=== PATIENT | male | born 1965 | race African-American/Black ===

== ENCOUNTER 2017-09-10 15:36 | Inpatient (IN) | payer BC ==
[~2017-09-10] VITALS: Ht 182.9 cm; Wt 81.6 kg
[2017-09-10 19:31] LABS: CHLORIDE 96 mEq/L (98-107)
[2017-09-10 19:32] LABS: HEMATOCRIT. 38.8 % (42.0-52.0); HEMOGLOBIN. 13.1 g/dL (14.0-18.0); MEAN CORPUSCULAR HEMOGLOBIN 22.8 pg (28.0-32.0); MEAN CORPUSCULAR VOLUME 67.6 fL (80.0-94.0); MEAN PLATELET VOLUME 10.1 fl (7.4-10.4); PLATELET 77 x1000/uL (130-400); RED BLOOD CELL COUNT 5.74 mill/uL (4.7-6.1); RED CELL DISTRIBUTION WIDTH 16.7 % (11.6-14.6)
[2017-09-10 19:34] LABS: ETHANOL BLOOD < 10 mg/dL; INR 3.4; PROTHROMBIN TIME 34.8 sec (9.4-11.6)
[2017-09-10] MEDS ORDERED: OCTREOTIDE ACETATE 50 MCG/ML 1ML IV STA (20:00)
[2017-09-10] MEDS ORDERED: PANTOPRAZOLE SODIUM 40 MG/VIAL IV STA (20:00)
[2017-09-10 20:59] LABS: PLATELET ESTIMATE MARKEDLY DECREASED
[2017-09-10] MEDS ORDERED: SODIUM CHLORIDE 0.9% 1,000 ML IV ONE (21:00)
[2017-09-10 21:13] LABS: CLARITY URINE CLOUDY (CLEAR); COLOR URINE DARK YELLOW (YELLOW); KETONES URINE NEGATIVE (NEGATIVE); LEUKOCYTE ESTERASE URINE 1+ (NEGATIVE); NITRITE URINE POSITIVE (NEGATIVE); OCCULT BLOOD URINE NEGATIVE (NEGATIVE); PROTEIN URINE TRACE (NEGATIVE); SPECIFIC GRAVITY URINE 1.029 (1.005-1.030)
[2017-09-10 21:21] LABS: *BARBITURATES SCREEN URINE NEGATIVE (NEGATIVE)
[2017-09-10 21:22] LABS: *AMPHETAMINES SCREEN URINE NEGATIVE (NEGATIVE); *BENZODIAZEPINES SCREEN URINE NEGATIVE (NEGATIVE); *COCAINE SCREEN URINE NEGATIVE (NEGATIVE); METHADONE URINE SCREEN NEGATIVE (NEGATIVE); OPIATES URINE SCREEN NEGATIVE (NEGATIVE)
[2017-09-10 21:23] LABS: PHENCYCLIDINE URINE SCREEN NEGATIVE (NEGATIVE)
[2017-09-10 21:25] LABS: CANNABINOID URINE SCREEN PRESUMTIVE POSITIVE (NEGATIVE)
[2017-09-10] MEDS ORDERED: PIPERACILLIN/TAZ 3.375G PREMIX 50 ML IV ONE (22:00)
[2017-09-10] MEDS: SODIUM CHLORIDE 0.9% 1,000 ML IV SCH (22:58)
[2017-09-10] MEDS ORDERED: DOCUSATE SODIUM 100MG CAPSULE PO PRN (23:00)
[2017-09-10] MEDS ORDERED: CLONIDINE 0.1MG TABLET PO PRN (23:00)
[2017-09-10] MEDS ORDERED: HYDROCODONE/ACETAMINOPHEN 5/325MG TABLET PO PRN (23:00)
[2017-09-10] MEDS ORDERED: MAGNESIUM/ALUMINUM HYDROXIDE/SIMETHICONE 30ML UDC PO PRN (23:00)
[2017-09-10] MEDS ORDERED: IPRATROPIUM/ALBUTEROL 0.5-3(2.5)MG/3ML NEB INH PRN (23:00)
[2017-09-10] MEDS ORDERED: ONDANSETRON HCL 4MG/2ML VIAL IV PRN (23:00)
[2017-09-10] MEDS ORDERED: [UNRECOGNIZED DRUG - CODE] PO (23:56)
[2017-09-10] MEDS ORDERED: EMTR1TAB11 PO (23:56)
[2017-09-11] VITALS (7 sets, daily range): BP systolic 113–122; BP diastolic 63–76
[2017-09-11 06:13] LABS: BASOPHILS % 0.4 % (0.0-2.0); EOSINOPHILS % 1.1 % (0.0-5.0); HEMATOCRIT. 31.6 % (42.0-52.0); HEMOGLOBIN. 10.8 g/dL (14.0-18.0); MEAN CORPUSCULAR HEMOGLOBIN 22.8 pg (28.0-32.0); MEAN CORPUSCULAR VOLUME 66.9 fL (80.0-94.0); MEAN PLATELET VOLUME 9.6 fl (7.4-10.4); MONOCYTES % 12.5 % (2.0-8.0); PLATELET 55 x1000/uL (130-400); RED BLOOD CELL COUNT 4.73 mill/uL (4.7-6.1); RED CELL DISTRIBUTION WIDTH 16.6 % (11.6-14.6)
[2017-09-11 07:20] LABS: CHLORIDE 100 mEq/L (98-107)
[2017-09-11 07:30] LABS: CREATINE KINASE 76 IU/L (39-308)
[2017-09-11 07:32] LABS: HDL CHOLESTEROL 9 mg/dL (40-59); LDL CHOLESTEROL 38 mg/dL (5-100)
[2017-09-11 07:38] LABS: CREATINE KINASE MB FRACTION 0.8 ng/mL (0.5-3.6)
[2017-09-11] MEDS ORDERED: HYDROCODONE/ACETAMINOPHEN 5/325MG TABLET PO PRN (09:00)
[2017-09-11] MEDS ORDERED: LORAZEPAM 0.5MG TABLET PO PRN (09:00)
[2017-09-11] MEDS ORDERED: ONDANSETRON HCL 4MG/2ML VIAL IV PRN (09:00)
[2017-09-11] MEDS ORDERED: ACETAMINOPHEN 650MG SUPP PR PRN (09:00)
[2017-09-11] MEDS ORDERED: DIPHENHYDRAMINE 50MG/ML VIAL IV PRN (09:00)
[2017-09-11] MEDS ORDERED: ACETAMINOPHEN 325MG TABLET PO PRN (09:00)
[2017-09-11] MEDS ORDERED: ACETAMINOPHEN 650MG/20.3ML UDC GT PRN (09:00)
[2017-09-11] MEDS ORDERED: HYDROCODONE/ACETAMINOPHEN 10/325MG TABLET PO PRN (09:00)
[2017-09-11] MEDS ORDERED: GUAIFENESIN 200MG/10ML SUGAR FREE UDC PO PRN (09:00)
[2017-09-11] MEDS ORDERED: CLONIDINE 0.1MG TABLET PO PRN (09:00)
[2017-09-11] MEDS ORDERED: MORPHINE SULFATE 4 MG/ML CPJ (NOT FOR IM USE) IV PRN (09:30)
[2017-09-11 10:22] LABS: PLATELET ESTIMATE DECREASED
[2017-09-11 10:38] LABS: HEPATITIS A AB IGM NEGATIVE (NEGATIVE)
[2017-09-11 11:17] LABS: HEPATITIS B CORE AB IGM REACTIVE; HEPATITIS B SURFACE ANTIGEN REACTIVE PEND CONFIR
[2017-09-11] MEDS: SODIUM CHLORIDE 0.9% 1,000 ML IV SCH (12:11)
[2017-09-11 15:05] LABS: CREATINE KINASE 84 IU/L (39-308)
[2017-09-11 15:08] LABS: CREATINE KINASE MB FRACTION 1.1 ng/mL (0.5-3.6)
[2017-09-11] MEDS: DEXT 5%/0.45% NACL 1000ML 1,000 ML IV SCH (16:31)
[2017-09-12] VITALS: BP 118/72
[2017-09-12] MEDS: DEXT 5%/0.45% NACL 1000ML 1,000 ML IV SCH ×2 (03:02→16:02)
[2017-09-12 04:00] VITALS: BP 110/71
[2017-09-12 07:26] LABS: BASOPHILS % 0.3 % (0.0-2.0); EOSINOPHILS % 0.7 % (0.0-5.0); HEMATOCRIT. 33.9 % (42.0-52.0); HEMOGLOBIN. 11.6 g/dL (14.0-18.0); LYMPHOCYTES % 33.2 % (20.0-50.0); MEAN CORPUSCULAR HEMOGLOBIN 22.9 pg (28.0-32.0); MEAN CORPUSCULAR VOLUME 66.8 fL (80.0-94.0); MONOCYTES % 10.1 % (2.0-8.0); NEUTROPHILS % 55.7 % (40.0-76.0); RED BLOOD CELL COUNT 5.07 mill/uL (4.7-6.1); RED CELL DISTRIBUTION WIDTH 16.8 % (11.6-14.6)
[2017-09-12 07:37] LABS: CHLORIDE 98 mEq/L (98-107)
[2017-09-12 07:44] LABS: PHOSPHORUS 2.2 mg/dL (2.5-4.9)
[2017-09-12 09:01] LABS: MEAN PLATELET VOLUME 9.6 fl (7.4-10.4); PLATELET 58 x1000/uL (130-400)
[2017-09-12 17:58] VITALS: BP 116/79
[2017-09-14 08:10] LABS: HBSAG SCREEN Positive (Negative)
[2017-09-14 09:11] LABS: ABSOLUTE MONOCYTES 0.4 x10E3/uL (0.1-0.9); ABSOLUTE NEUTROPHILS 2.4 x10E3/uL (1.4-7.0); BASOPHILS 0 % (Not Estab.); HEMATOCRIT 31.5 % (37.5-51.0); HEMATOLOGY COMMENT Note: (.); HEMOGLOBIN 11.5 g/dL (13.0-17.7); IMMATURE GRANULOCYTES 0 % (Not Estab.); LYMPHOCYTES 27 % (Not Estab.); MEAN CORPUSCULAR HEMOGLOBIN 22.8 pg (26.6-33.0); MEAN CORPUSCULAR HGB CONC. 36.5 g/dL (31.5-35.7); MEAN CORPUSCULAR VOLUME 62 fL (79-97); MONOCYTES 9 % (Not Estab.); NEUTROPHILS 63 % (Not Estab.); PLATELETS 76 x10E3/uL (150-379); RBC 5.05 x10E6/uL (4.14-5.80); RED CELL DISTRIBUTION WIDTH 18.1 % (12.3-15.4); WBC 3.9 x10E3/uL (3.4-10.8)
[2017-09-16 04:17] LABS: % CD 4 POS. LYMPHOCYTES 24.5 % (30.8-58.5); % CD 8 POS. LYMPH 67.5 % (12.0-35.5); ABSOLUTE CD 3 930 /uL (622-2402); ABSOLUTE CD 4 HELPER 245 /uL (359-1519); ABSOLUTE CD 8 SUPPRESSOR 675 /uL (109-897); CD4/CD8 RATIO 0.36 (0.92-3.72)
== END 2017-09-12 18:20 | disposition home or self-care (01) | DRG 439 ==
LOC: ER 15:36 → 6EST 21:53 → ENRESERV 22:08
PROVIDERS: ADMIT Internal Medicine; ATTEND Internal Medicine
DX: K85.90 Acute pancreatitis without necrosis or infection, unspecified (principal); E87.2 Acidosis; B19.10 Unspecified viral hepatitis B without hepatic coma; K74.60 Unspecified cirrhosis of liver; E88.09 Other disorders of plasma-protein metabolism, not elsewhere classified; N28.1 Cyst of kidney, acquired; K92.1 Melena; K81.9 Cholecystitis, unspecified; D50.9 Iron deficiency anemia, unspecified; Z21 Asymptomatic human immunodeficiency virus [HIV] infection status; D72.819 Decreased white blood cell count, unspecified; K76.0 Fatty (change of) liver, not elsewhere classified; N20.0 Calculus of kidney; K86.89 Other specified diseases of pancreas; R16.1 Splenomegaly, not elsewhere classified; Z79.899 Other long term (current) drug therapy
CPT/HCPCS: 36415; 71045; 74176; 74181; 76705; 80048; 80053; 80061; 80076; 80305; 81003; 82550; 82553; 83605; 83690; 83735; 84100; 84443; 84484; 85025; 85610; 86359; 86360; 86705; 86709; 86803; 87040; 87340; 87536; 93970; 96361; 96374; 96375; 99285; A4565; C1893; C9113; G0482; J2354; J2405; J3490; J7030

== ENCOUNTER 2017-09-22 08:21 | Inpatient (IN) | payer BC ==
[~2017-09-22] VITALS: Ht 182.9 cm; Wt 104.3 kg
[~2017-09-22 08:21] MED LIST: EMTR1TAB11 PO; [UNRECOGNIZED DRUG - CODE] PO
[2017-09-22 09:48] LABS: BG BASE EXCESS 3.8 mmol/L (-2.0-2.0); BG CARBOXYHEMOGLOBIN 1.9 % (0.5-1.5); BG DEOXYHEMOGLOBIN 5.1 % (0.0-5.0); BG FRACTION INSPIRED OXYGEN 21; BG HCO3 ACT 27.5 mmol/L (22.0-26.0); BG METHEMOGLOBIN 0.1 % (0.0-1.5); BG OXYGEN SATURATION 94.8 % (92.0-98.5); BG OXYHEMOGLOBIN 92.9 % (94.0-97.0); BG PCO2 38.1 mmHg (35.0-45.0); BG PH 7.476 (7.350-7.450); BG PO2 79.3 mmHg (75.0-100.0); BG SAMPLE SITE RIGHT BRACHIAL; BG VENT MODE ROOM AIR
[2017-09-22 10:24] LABS: CHLORIDE 98 mEq/L (98-107)
[2017-09-22 10:31] LABS: ETHANOL BLOOD < 10 mg/dL
[2017-09-22 10:37] LABS: BASOPHILS % 0.4 % (0.0-2.0); EOSINOPHILS % 0.2 % (0.0-5.0); HEMATOCRIT. 36.6 % (42.0-52.0); HEMOGLOBIN. 12.4 g/dL (14.0-18.0); LYMPHOCYTES % 17.1 % (20.0-50.0); MEAN CORPUSCULAR HEMOGLOBIN 22.8 pg (28.0-32.0); MEAN CORPUSCULAR VOLUME 67.2 fL (80.0-94.0); MONOCYTES % 9.7 % (2.0-8.0); NEUTROPHILS % 72.6 % (40.0-76.0); PARTIAL THROMBOPLASTIN TIME 67.9 sec (23.4-31.0); RED BLOOD CELL COUNT 5.44 mill/uL (4.7-6.1); RED CELL DISTRIBUTION WIDTH 17.5 % (11.6-14.6)
[2017-09-22 10:55] LABS: PROTHROMBIN TIME > 100.0 sec (9.4-11.6)
[2017-09-22 10:56] LABS: INR > 10.0
[2017-09-22] MEDS ORDERED: PHYTONADIONE 10MG/ML AMP SUBCUT ONE (11:00)
[2017-09-22 11:18] LABS: MEAN PLATELET VOLUME 9.4 fl (7.4-10.4); PLATELET 93 x1000/uL (130-400)
[2017-09-22 11:20] LABS: AMMONIA 17 uMol/L (<32)
[2017-09-22] MEDS ORDERED: LACTULOSE 20G/30ML UDC PO ONE (13:30)
[2017-09-22] MEDS ORDERED: CEFTRIAXONE 1 G PREMIX 50 ML IV ONE (13:45)
[2017-09-22] MEDS ORDERED: LACTULOSE 300 ML in WATER FOR INJECTION,STERILE 700 ML PR ONE (14:15)
[2017-09-22 15:20] VITALS: BP 129/65
[2017-09-22] MEDS ORDERED: SODIUM CHLORIDE 0.9% 1,000 ML IV SCH (15:45)
[2017-09-22] MEDS ORDERED: DEXTROSE 50% WATER 50ML SYRINGE IV NR (16:00)
[2017-09-22] MEDS ORDERED: SODIUM POLYSTYRENE SULFONATE 15 G/60 ML BOT PO NR ×2 (16:00→23:00)
[2017-09-22 16:35] VITALS: BP 129/65
[2017-09-22] MEDS ORDERED: CALCIUM CHLORIDE 1,000 MG in DEXT 5% WATER 90 ML IV NR (17:30)
[2017-09-22] MEDS ORDERED: DEXT 5%/0.9% NACL 1,000 ML IV SCH (17:30)
[2017-09-22] MEDS ORDERED: INSULIN REGULAR (HUMULIN R) UD 100 UNITS/ML SYR IV NR (17:30)
[2017-09-22] MEDS: DEXT 5%/0.9% NACL 1,000 ML IV SCH (18:24)
[2017-09-22 20:00] VITALS: BP 158/93
[2017-09-22] MEDS ORDERED: PROP80CA2 PO (20:59)
[2017-09-22] MEDS ORDERED: PANT40TA4 PO (21:00)
[2017-09-22] MEDS: LORAZEPAM 2MG/ML CPJ IV PRN (23:28)
[2017-09-23] VITALS: BP 113/92
[2017-09-23] MEDS: DEXT 5%/0.9% NACL 1,000 ML IV SCH ×3 (03:48→21:45)
[2017-09-23 04:00] VITALS: BP 115/77
[2017-09-23 06:29] LABS: CHLORIDE 102 mEq/L (98-107)
[2017-09-23 06:43] LABS: AMMONIA 76 uMol/L (<32)
[2017-09-23 06:51] LABS: AMYLASE 161 IU/L (25-115)
[2017-09-23 06:52] LABS: PHOSPHORUS 3.1 mg/dL (2.5-4.9)
[2017-09-23 07:21] LABS: INR > 10.0; PROTHROMBIN TIME > 100.0 sec (9.4-11.6)
[2017-09-23] MEDS ORDERED: PHYTONADIONE 10MG/ML AMP SUBCUT NR (07:30)
[2017-09-23 08:00] VITALS: BP 119/75
[2017-09-23] MEDS ORDERED: SODIUM POLYSTYRENE SULFONATE 15 G/60 ML BOT PO NR (08:30)
[2017-09-23 12:00] VITALS: BP 131/85
[2017-09-23 12:46] LABS: BASOPHILS % 0.2 % (0.0-2.0); HEMATOCRIT. 32.6 % (42.0-52.0); HEMOGLOBIN. 11.1 g/dL (14.0-18.0); MEAN CORPUSCULAR HEMOGLOBIN 22.8 pg (28.0-32.0); MEAN CORPUSCULAR VOLUME 66.5 fL (80.0-94.0); MONOCYTES % 12.6 % (2.0-8.0); NEUTROPHILS % 70.2 % (40.0-76.0); RED CELL DISTRIBUTION WIDTH 17.9 % (11.6-14.6)
[2017-09-23 13:24] LABS: PLATELET 111 x1000/uL (130-400)
[2017-09-23 13:25] LABS: MEAN PLATELET VOLUME 9.6 fl (7.4-10.4)
[2017-09-23] MEDS: LACTULOSE 20G/30ML UDC PO SCH ×2 (14:10→21:45)
[2017-09-23] MEDS ORDERED: CEFTRIAXONE 1 G PREMIX 50 ML IV SCH ×2 (15:00→17:00)
[2017-09-23 15:03] LABS: KETONES URINE NEGATIVE (NEGATIVE); LEUKOCYTE ESTERASE URINE NEGATIVE (NEGATIVE); NITRITE URINE NEGATIVE (NEGATIVE); OCCULT BLOOD URINE 3+ (NEGATIVE); PROTEIN URINE NEGATIVE (NEGATIVE); SPECIFIC GRAVITY URINE 1.026 (1.005-1.030)
[2017-09-23 15:06] LABS: CLARITY URINE CLOUDY (CLEAR); COLOR URINE BLOODY (YELLOW)
[2017-09-23 15:22] LABS: *AMPHETAMINES SCREEN URINE NEGATIVE (NEGATIVE); *BARBITURATES SCREEN URINE NEGATIVE (NEGATIVE); *BENZODIAZEPINES SCREEN URINE NEGATIVE (NEGATIVE); *COCAINE SCREEN URINE NEGATIVE (NEGATIVE)
[2017-09-23 15:23] LABS: CANNABINOID URINE SCREEN NEGATIVE (NEGATIVE); METHADONE URINE SCREEN NEGATIVE (NEGATIVE); OPIATES URINE SCREEN NEGATIVE (NEGATIVE); PHENCYCLIDINE URINE SCREEN NEGATIVE (NEGATIVE)
[2017-09-23 16:00] VITALS: BP 119/77
[2017-09-23] MEDS: LORAZEPAM 2MG/ML CPJ IV PRN (18:49)
[2017-09-23 20:00] VITALS: BP 161/92
[2017-09-24] VITALS (63 sets, daily range): BP systolic 64–147; BP diastolic 37–130
[2017-09-24] MEDS: LACTULOSE 20G/30ML UDC PO SCH ×4 (05:45→23:50)
[2017-09-24] MEDS: DEXT 5%/0.9% NACL 1,000 ML IV SCH ×3 (05:45→23:50)
[2017-09-24 07:53] LABS: PROTHROMBIN TIME > 100.0 sec (9.4-11.6)
[2017-09-24 07:57] LABS: INR > 10.0
[2017-09-24 07:59] LABS: HEMATOCRIT. 31.1 % (42.0-52.0); HEMOGLOBIN. 10.4 g/dL (14.0-18.0); MEAN CORPUSCULAR HEMOGLOBIN 22.7 pg (28.0-32.0); MEAN CORPUSCULAR VOLUME 67.6 fL (80.0-94.0); RED CELL DISTRIBUTION WIDTH 19.6 % (11.6-14.6)
[2017-09-24 09:42] LABS: AMMONIA 194 uMol/L (<32)
[2017-09-24] MEDS ORDERED: PHYTONADIONE 10MG/ML AMP SUBCUT NR (10:30)
[2017-09-24 10:50] LABS: BG BASE EXCESS 1.6 mmol/L (-2.0-2.0); BG CARBOXYHEMOGLOBIN 2.2 % (0.5-1.5); BG DEOXYHEMOGLOBIN 13.3 % (0.0-5.0); BG FRACTION INSPIRED OXYGEN 21; BG HCO3 ACT 23.7 mmol/L (22.0-26.0); BG METHEMOGLOBIN 0.1 % (0.0-1.5); BG OXYGEN SATURATION 86.4 % (92.0-98.5); BG OXYHEMOGLOBIN 84.4 % (94.0-97.0); BG PCO2 29.2 mmHg (35.0-45.0); BG PH 7.528 (7.350-7.450); BG PO2 53.6 mmHg (75.0-100.0); BG SAMPLE SITE OTHER; BG TOTAL HEMOGLOBIN 10.5 g/dL (12.0-18.0); BG VENT MODE ROOM AIR
[2017-09-24] MEDS ORDERED: LORAZEPAM 2MG/ML CPJ IV PRN (11:00)
[2017-09-24] MEDS ORDERED: NA PHOS,M-B/NA PHOS,DI-BA ENEMA 118ML PR PRN (11:15)
[2017-09-24] MEDS: RIFAXIMIN 550 MG TABLET PO SCH ×2 (11:31→20:45)
[2017-09-24] MEDS ORDERED: SORBITOL 70% SOLN 30ML PO NR (11:45)
[2017-09-24 12:56] LABS: PLATELET 121 x1000/uL (130-400)
[2017-09-24 12:59] LABS: NUCLEATED RED BLOOD CELLS 1 /100 WBC; PLATELET ESTIMATE DECREASED
[2017-09-24] MEDS ORDERED: PIPERACILLIN/TAZ 2.25G PREMIX 50 ML IV SCH (13:00)
[2017-09-24] MEDS ORDERED: IPRATROPIUM/ALBUTEROL 0.5-3(2.5)MG/3ML NEB HHN PRN (13:00)
[2017-09-24] MEDS ORDERED: SUCCINYLCHOLINE CHLORIDE 200MG/10ML VIAL IV ONE (13:12)
[2017-09-24] MEDS ORDERED: NORMAL SALINE 0.9% 10 ML SYR ONE (13:12)
[2017-09-24] MEDS ORDERED: ETOMIDATE 2MG/ML 10ML VIAL IV ONE (13:12)
[2017-09-24] MEDS: PANTOPRAZOLE SODIUM 40 MG/VIAL IV SCH (14:50)
[2017-09-24 14:56] LABS: BG BASE EXCESS 0.5 mmol/L (-2.0-2.0); BG CARBOXYHEMOGLOBIN 1.5 % (0.5-1.5); BG DEOXYHEMOGLOBIN 11.2 % (0.0-5.0); BG FRACTION INSPIRED OXYGEN 100; BG HCO3 ACT 24.1 mmol/L (22.0-26.0); BG METHEMOGLOBIN 0.3 % (0.0-1.5); BG OXYGEN SATURATION 88.6 % (92.0-98.5); BG PCO2 34.8 mmHg (35.0-45.0); BG PH 7.459 (7.350-7.450); BG PO2 62.3 mmHg (75.0-100.0); BG SAMPLE SITE LEFT BRACHIAL; BG TIDAL VOLUME(mL) 500 mL; BG VENT MODE VENT - A/C; BG VENT RATE 14 set
[2017-09-24] MEDS ORDERED: PIPERACILLIN/TAZ 3.375G PREMIX 50 ML IV SCH (15:00)
[2017-09-24] MEDS: PROPOFOL 10MG/ML 100ML 100 ML IV PRN (15:26)
[2017-09-24] MEDS ORDERED: PHENYLEPHRINE 10 MG in DEXT 5% WATER 249 ML IV PRN (15:30)
[2017-09-24] MEDS ORDERED: NOREPINEPHRINE 4 MG in DEXT 5% WATER 246 ML IV PRN (15:30)
[2017-09-24] MEDS: IPRATROPIUM/ALBUTEROL 0.5-3(2.5)MG/3ML NEB HHN SCH ×2 (15:48→21:21)
[2017-09-24] MEDS ORDERED: SULFAMETHOXAZOLE/TRIMETHOPRIM 800/160MG TABLET PO SCH (16:00)
[2017-09-24] MEDS: AZITHROMYCIN 500 MG TABLET PO SCH (16:12)
[2017-09-24] MEDS: METRONIDAZOLE 500 MG PREMIX 100 ML IV SCH ×2 (16:28→23:50)
[2017-09-24] MEDS: CEFEPIME 1,000 MG in DEXTROSE 5% WATER 50 ML IV SCH (16:28)
[2017-09-24] MEDS: NOREPINEPHRINE 16 MG in DEXT 5% WATER 234 ML IV PRN (17:15)
[2017-09-24] MEDS: PHENYLEPHRINE 40 MG in DEXT 5% WATER 246 ML IV PRN (17:16)
[2017-09-24 17:59] LABS: AMMONIA 241 uMol/L (<32)
[2017-09-25] VITALS (84 sets, daily range): BP systolic 90–125; BP diastolic 47–97
[2017-09-25] MEDS: PHENYLEPHRINE 40 MG in DEXT 5% WATER 246 ML IV PRN ×4 (00:17→20:08)
[2017-09-25] MEDS: IPRATROPIUM/ALBUTEROL 0.5-3(2.5)MG/3ML NEB HHN SCH ×6 (00:51→20:50)
[2017-09-25] MEDS: NOREPINEPHRINE 16 MG in DEXT 5% WATER 234 ML IV PRN ×2 (02:09→09:59)
[2017-09-25] MEDS: PROPOFOL 10MG/ML 100ML 100 ML IV PRN ×3 (03:36→17:47)
[2017-09-25] MEDS: LACTULOSE 20G/30ML UDC PO SCH (05:19)
[2017-09-25 06:06] LABS: PARTIAL THROMBOPLASTIN TIME 62.6 sec (23.4-31.0)
[2017-09-25 06:25] LABS: HEMATOCRIT. 29.8 % (42.0-52.0); HEMOGLOBIN. 9.9 g/dL (14.0-18.0); MEAN CORPUSCULAR VOLUME 69.5 fL (80.0-94.0); RED BLOOD CELL COUNT 4.29 mill/uL (4.7-6.1); RED CELL DISTRIBUTION WIDTH 18.2 % (11.6-14.6)
[2017-09-25 06:46] LABS: AMMONIA 262 uMol/L (<32)
[2017-09-25 06:47] LABS: FIBRINOGEN 50 mg/dL (200-400); PROTHROMBIN TIME > 100.0 sec (9.4-11.6)
[2017-09-25 06:48] LABS: INR > 10.0
[2017-09-25] MEDS ORDERED: SODIUM POLYSTYRENE SULFONATE 15 G/60 ML BOT PO SCH (07:30)
[2017-09-25] MEDS ORDERED: PHYTONADIONE 10MG/ML AMP SUBCUT SCH (07:30)
[2017-09-25] MEDS: PANTOPRAZOLE SODIUM 40 MG/VIAL IV SCH (08:18)
[2017-09-25] MEDS: AZITHROMYCIN 500 MG TABLET PO SCH (08:18)
[2017-09-25] MEDS: DEXT 5%/0.9% NACL 1,000 ML IV SCH ×2 (08:21→17:45)
[2017-09-25] MEDS: METRONIDAZOLE 500 MG PREMIX 100 ML IV SCH ×2 (08:21→17:46)
[2017-09-25] MEDS ORDERED: LACTULOSE 300 ML in WATER FOR INJECTION,STERILE 700 ML PR ONE (10:00)
[2017-09-25 10:10] LABS: BG CARBOXYHEMOGLOBIN 1.3 % (0.5-1.5); BG DEOXYHEMOGLOBIN 60.4 % (0.0-5.0); BG METHEMOGLOBIN 0.4 % (0.0-1.5); BG OXYGEN SATURATION 38.6 % (92.0-98.5); BG OXYHEMOGLOBIN 37.9 % (94.0-97.0); BG PCO2 25.9 mmHg (35.0-45.0); BG PH 7.319 (7.350-7.450); BG PO2 < 30.3 mmHg (75.0-100.0); BG SAMPLE SITE RIGHT RADIAL; BG TIDAL VOLUME(mL) 500 mL; BG TOTAL HEMOGLOBIN 6.1 g/dL (12.0-18.0); BG VENT MODE VENT - A/C; BG VENT RATE 14 set
[2017-09-25] MEDS: RIFAXIMIN 550 MG TABLET PO SCH ×2 (10:30→20:40)
[2017-09-25] MEDS ORDERED: LACTULOSE 300 ML in WATER FOR INJECTION,STERILE 700 ML PR SCH (10:30)
[2017-09-25 13:07] LABS: PLATELET 76 x1000/uL (130-400)
[2017-09-25 13:12] LABS: NUCLEATED RED BLOOD CELLS 7 /100 WBC
[2017-09-25 13:14] LABS: PLATELET ESTIMATE MARKEDLY DECREASED
[2017-09-25] MEDS: CEFEPIME 1,000 MG in DEXTROSE 5% WATER 50 ML IV SCH (17:46)
[2017-09-25 20:54] LABS: AMMONIA 44 uMol/L (<32)
[2017-09-25 21:34] LABS: VITAMIN B12 SERUM > 2000.0 pg/mL (211-911)
[2017-09-25] MEDS ORDERED: PHENYLEPHRINE 80 MG in DEXT 5% WATER 492 ML IV PRN (21:45)
[2017-09-26] VITALS (94 sets, daily range): BP systolic 71–111; BP diastolic 38–66
[2017-09-26] MEDS: METRONIDAZOLE 500 MG PREMIX 100 ML IV SCH ×3 (00:05→17:10)
[2017-09-26] MEDS: PHENYLEPHRINE 80 MG in DEXT 5% WATER 492 ML IV PRN ×3 (00:08→17:36)
[2017-09-26] MEDS: IPRATROPIUM/ALBUTEROL 0.5-3(2.5)MG/3ML NEB HHN SCH ×7 (00:34→23:59)
[2017-09-26] MEDS: NOREPINEPHRINE 16 MG in DEXT 5% WATER 234 ML IV PRN ×2 (01:17→17:12)
[2017-09-26] MEDS: PROPOFOL 10MG/ML 100ML 100 ML IV PRN ×4 (03:21→22:34)
[2017-09-26] MEDS: DEXT 5%/0.9% NACL 1,000 ML IV SCH ×3 (04:17→15:01)
[2017-09-26] MEDS ORDERED: PHYTONADIONE 10MG/ML AMP SUBCUT SCH (05:00)
[2017-09-26 05:52] LABS: BASOPHILS % 0.2 % (0.0-2.0); HEMATOCRIT. 26.5 % (42.0-52.0); HEMOGLOBIN. 9.3 g/dL (14.0-18.0); LYMPHOCYTES % 12.1 % (20.0-50.0); MEAN CORPUSCULAR HEMOGLOBIN 23.7 pg (28.0-32.0); MEAN CORPUSCULAR VOLUME 67.5 fL (80.0-94.0); MONOCYTES % 12.9 % (2.0-8.0); NEUTROPHILS % 74.8 % (40.0-76.0); RED BLOOD CELL COUNT 3.93 mill/uL (4.7-6.1); RED CELL DISTRIBUTION WIDTH 18.3 % (11.6-14.6)
[2017-09-26 06:19] LABS: PHOSPHORUS 6.7 mg/dL (2.5-4.9)
[2017-09-26 06:23] LABS: AMMONIA 119 uMol/L (<32)
[2017-09-26 08:12] LABS: PROTHROMBIN TIME > 100.0 sec (9.4-11.6)
[2017-09-26 08:18] LABS: INR > 10.0
[2017-09-26 09:35] LABS: BG BASE EXCESS -5.4 mmol/L (-2.0-2.0); BG DEOXYHEMOGLOBIN 2.7 % (0.0-5.0); BG FRACTION INSPIRED OXYGEN 45; BG HCO3 ACT 16.9 mmol/L (22.0-26.0); BG METHEMOGLOBIN 0.2 % (0.0-1.5); BG OXYGEN SATURATION 97.3 % (92.0-98.5); BG OXYHEMOGLOBIN 96.1 % (94.0-97.0); BG PCO2 23.4 mmHg (35.0-45.0); BG PH 7.476 (7.350-7.450); BG SAMPLE SITE RIGHT BRACHIAL; BG TIDAL VOLUME(mL) 600 mL; BG TOTAL HEMOGLOBIN 9.6 g/dL (12.0-18.0); BG VENT MODE VENT - A/C; BG VENT RATE 14 set
[2017-09-26] MEDS: PANTOPRAZOLE SODIUM 40 MG/VIAL IV SCH (09:49)
[2017-09-26] MEDS: RIFAXIMIN 550 MG TABLET PO SCH ×2 (09:49→21:04)
[2017-09-26] MEDS: AZITHROMYCIN 500 MG TABLET PO SCH (09:49)
[2017-09-26 12:08] LABS: HEPATITIS A AB IGM NEGATIVE (NEGATIVE)
[2017-09-26 12:19] LABS: HEPATITIS B CORE AB IGM REACTIVE; HEPATITIS B SURFACE ANTIGEN REACTIVE PEND CONFIR
[2017-09-26] MEDS: CEFEPIME 1,000 MG in DEXTROSE 5% WATER 50 ML IV SCH (17:11)
[2017-09-26] MEDS: VASOPRESSIN 10 UNIT in SODIUM CHLORIDE 0.9% 99.5 ML IV PRN ×2 (18:27→20:49)
[2017-09-27] VITALS (93 sets, daily range): BP systolic 70–116; BP diastolic 17–69
[2017-09-27] MEDS: METRONIDAZOLE 500 MG PREMIX 100 ML IV SCH ×3 (00:57→16:46)
[2017-09-27] MEDS: VASOPRESSIN 10 UNIT in SODIUM CHLORIDE 0.9% 99.5 ML IV PRN ×6 (00:58→23:54)
[2017-09-27] MEDS: PHENYLEPHRINE 80 MG in DEXT 5% WATER 492 ML IV PRN ×3 (01:50→17:48)
[2017-09-27] MEDS: NOREPINEPHRINE 16 MG in DEXT 5% WATER 234 ML IV PRN ×3 (02:13→17:55)
[2017-09-27] MEDS: PROPOFOL 10MG/ML 100ML 100 ML IV PRN ×2 (03:35→07:18)
[2017-09-27] MEDS: IPRATROPIUM/ALBUTEROL 0.5-3(2.5)MG/3ML NEB HHN SCH ×5 (03:56→20:25)
[2017-09-27 05:43] LABS: AMMONIA 51 uMol/L (<32)
[2017-09-27 05:48] LABS: HEMATOCRIT. 31.7 % (42.0-52.0); HEMOGLOBIN. 10.3 g/dL (14.0-18.0); MEAN CORPUSCULAR HEMOGLOBIN 23.9 pg (28.0-32.0); MEAN CORPUSCULAR VOLUME 73.7 fL (80.0-94.0); RED CELL DISTRIBUTION WIDTH 21.1 % (11.6-14.6)
[2017-09-27 08:05] LABS: BG BASE EXCESS -6.3 mmol/L (-2.0-2.0); BG CARBOXYHEMOGLOBIN 0.7 % (0.5-1.5); BG DEOXYHEMOGLOBIN 5.1 % (0.0-5.0); BG HCO3 ACT 17.6 mmol/L (22.0-26.0); BG METHEMOGLOBIN 0.4 % (0.0-1.5); BG OXYGEN SATURATION 94.8 % (92.0-98.5); BG OXYHEMOGLOBIN 93.8 % (94.0-97.0); BG PCO2 29.4 mmHg (35.0-45.0); BG PH 7.394 (7.350-7.450); BG PO2 82.1 mmHg (75.0-100.0); BG SAMPLE SITE RIGHT RADIAL; BG TIDAL VOLUME(mL) 500 mL; BG TOTAL HEMOGLOBIN 10.1 g/dL (12.0-18.0); BG VENT MODE VENT - A/C; BG VENT RATE 12 set
[2017-09-27] MEDS: RIFAXIMIN 550 MG TABLET PO SCH ×4 (08:29→21:53)
[2017-09-27] MEDS: AZITHROMYCIN 500 MG TABLET PO SCH (08:29)
[2017-09-27] MEDS: PANTOPRAZOLE SODIUM 40 MG/VIAL IV SCH (08:29)
[2017-09-27] MEDS ORDERED: LACTULOSE 300 ML in WATER FOR IRRIGATION,STERILE 700 ML PR ONE (10:00)
[2017-09-27 10:18] LABS: PLATELET 78 x1000/uL (130-400)
[2017-09-27 10:19] LABS: MEAN PLATELET VOLUME 10.6 fl (7.4-10.4)
[2017-09-27 10:23] LABS: MEAN PLATELET VOLUME 6.8 fl (7.4-10.4); PLATELET 83 x1000/uL (130-400)
[2017-09-27 10:29] LABS: NUCLEATED RED BLOOD CELLS 9 /100 WBC; PLATELET ESTIMATE SLIGHTLY DECREASED
[2017-09-27] MEDS ORDERED: MORPHINE SULFATE 4 MG/ML CPJ (NOT FOR IM USE) IV PRN (12:00)
[2017-09-27] MEDS: CEFEPIME 1,000 MG in DEXTROSE 5% WATER 50 ML IV SCH (16:46)
[2017-09-27] MEDS: DEXT 5%/0.9% NACL 1,000 ML IV SCH (16:50)
[2017-09-28] VITALS (50 sets, daily range): BP systolic 44–119; BP diastolic 21–71
[2017-09-28] MEDS: METRONIDAZOLE 500 MG PREMIX 100 ML IV SCH (00:21)
[2017-09-28] MEDS: IPRATROPIUM/ALBUTEROL 0.5-3(2.5)MG/3ML NEB HHN SCH ×3 (00:42→08:00)
[2017-09-28] MEDS: PHENYLEPHRINE 80 MG in DEXT 5% WATER 492 ML IV PRN ×2 (01:36→08:40)
[2017-09-28] MEDS: NOREPINEPHRINE 16 MG in DEXT 5% WATER 234 ML IV PRN (02:49)
[2017-09-28] MEDS: VASOPRESSIN 10 UNIT in SODIUM CHLORIDE 0.9% 99.5 ML IV PRN ×2 (03:23→08:42)
[2017-09-28 05:52] LABS: AMMONIA 89 uMol/L (<32)
[2017-09-28] MEDS ORDERED: ATROPINE SULFATE 1% OPHTH 2ML SL PRN (09:30)
[2017-09-28] MEDS ORDERED: MORPHINE SULFATE 250 MG in DEXT 5% WATER 240 ML IV PRN (09:30)
[2017-09-28] MEDS ORDERED: LORAZEPAM 2MG/ML CPJ IV PRN (11:00)
== END 2017-09-28 11:35 | disposition expired | DRG 870 ==
LOC: ER 08:28 → EDBEDREQTM 08:30 → 5WST 13:20 → EDBEDREQ 13:23 → ENRESERV 14:18 → 5WST 15:25 → 3WST 09-24 12:06 → MICUNO 09-24 13:30
PROVIDERS: ADMIT Internal Medicine; ATTEND Internal Medicine
PROC: 5A1955Z Respiratory Ventilation, Greater than 96 Consecutive Hours (ICD-10-PCS; principal; 2017-09-24)
PROC: 0BH17EZ Insertion of Endotracheal Airway into Trachea, Via Natural or Artificial Opening (ICD-10-PCS; 2017-09-24)
PROC: 30233L1 Transfusion of Nonautologous Fresh Plasma into Peripheral Vein, Percutaneous Approach (ICD-10-PCS; 2017-09-24)
PROC: 30233K1 Transfusion of Nonautologous Frozen Plasma into Peripheral Vein, Percutaneous Approach (ICD-10-PCS; 2017-09-24)
PROC: 4A00X4Z Measurement of Central Nervous Electrical Activity, External Approach (ICD-10-PCS; 2017-09-26)
DX: A41.9 Sepsis, unspecified organism (principal); D65 Disseminated intravascular coagulation [defibrination syndrome]; J96.01 Acute respiratory failure with hypoxia; K72.00 Acute and subacute hepatic failure without coma; J69.0 Pneumonitis due to inhalation of food and vomit; G92 Toxic encephalopathy; N17.0 Acute kidney failure with tubular necrosis; E43 Unspecified severe protein-calorie malnutrition; K85.90 Acute pancreatitis without necrosis or infection, unspecified; R65.21 Severe sepsis with septic shock; D68.4 Acquired coagulation factor deficiency; E87.1 Hypo-osmolality and hyponatremia; B19.10 Unspecified viral hepatitis B without hepatic coma; Z66 Do not resuscitate; B19.20 Unspecified viral hepatitis C without hepatic coma; D50.9 Iron deficiency anemia, unspecified; E86.9 Volume depletion, unspecified; E87.5 Hyperkalemia; I10 Essential (primary) hypertension; K70.31 Alcoholic cirrhosis of liver with ascites; Z51.5 Encounter for palliative care; Z79.899 Other long term (current) drug therapy; Z68.31 Body mass index [BMI] 31.0-31.9, adult
CPT/HCPCS: 31500; 36415; 36600; 70450; 70551; 71045; 74176; 76705; 80048; 80053; 80076; 80305; 81003; 82105; 82140; 82150; 82248; 82375; 82607; 82746; 82805; 82962; 83036; 83605; 83690; 83735; 83880; 84100; 84132; 84439; 84443; 84478; 84481; 84484; 85025; 85384; 85610; 85730; 86705; 86709; 86803; 86850; 86900; 86927; 87040; 87070; 87077; 87086; 87186; 87340; 93005; 93970; 94003; 94640; 96365; 96366; 96375; 99291; A4216; A6261; C9113; G0482; J0330; J0692; J0696; J1815; J2060; J2270; J2370; J2543; J2704; J3430; J3490; J7042; J7050; J7060; J7620; P9017; A4315